=== PATIENT | male | born 1995 | race Caucasian/White ===

== ENCOUNTER 2018-06-16 22:12 | Emergency (ER) | payer MEDICAID ==
[~2018-06-16] VITALS: Ht 182.9 cm; Wt 72.7 kg
[2018-06-16 23:30] VITALS: BP 124/74
== END 2018-06-16 23:45 | disposition home or self-care (01) ==
LOC: EMS 22:15
DX: Z46.89 Encounter for fitting and adjustment of other specified devices (principal); F17.210 Nicotine dependence, cigarettes, uncomplicated